=== PATIENT | male | born 1995 | race Caucasian/White ===

== ENCOUNTER 2018-09-20 11:43 | Emergency (ER) | payer OTHER | END 2018-09-20 12:08 | disposition left against medical advice (07) | LOC: UCEAST 11:43 | DX: S60.559A Superficial foreign body of unspecified hand, initial encounter (principal); X58.XXXA Exposure to other specified factors, initial encounter; Y92.9 Unspecified place or not applicable; Z53.21 Procedure and treatment not carried out due to patient leaving prior to being seen by health care provider ==

== ENCOUNTER 2019-07-03 07:07 | Emergency (ER) | payer OTHER ==
[2019-07-03 07:30] VITALS: BP 131/87
--- NOTE | 2019-07-03 07:48 | UC ---
Throat Pain/Nasal Refugio HPI - HPI Summary HPI Summary: 23-year-old male comes in with chief complaint of sore throat chills and swollen lymph nodes in his neck. Symptoms been going on for 4-5 days. Evening especially's been having chills and feeling overheated. No fevers measured. Does have pain when he swallows and his throat. He has green sputum. Denies any rhinorrhea or sinus pressure or ear pain. No complaint of any shortness of breath. - History of Current Complaint Chief Complaint: UCGeneralIllness Stated Complaint: SORE THROAT SWOLLEN GLAND Time Seen by Provider: 07/03/19 07:21 Pain Intensity: 6 - Allergies/Home Medications Allergies/Adverse Reactions: Allergies Allergy/AdvReac Type Severity Reaction Status Date / Time No Known Allergies Allergy Unverified 09/20/18 12:52 PMH/Surg Hx/FS Hx/Imm Hx Previously Healthy: Yes - Surgical History Surgical History: None - Family History Known Family History: Positive: Non-Contributory - Social History Alcohol Use: Weekly Substance Use Type: None Smoking Status (MU): Never Smoked Tobacco Review of Systems All Other Systems Reviewed And Are Negative: Yes Constitutional: Positive: Chills, Other - see hpi Skin: Positive: Negative Eyes: Positive: Negative ENT: Positive: Sore Throat, Other - see hpi Respiratory: Positive: Negative Cardiovascular: Positive: Negative Gastrointestinal: Positive: Negative Motor: Positive: Negative Neurovascular: Positive: Negative Musculoskeletal: Positive: Negative Neurological: Positive: Negative Psychological: Positive: Negative Is Patient Immunocompromised?: No Physical Exam Triage Information Reviewed: Yes Appearance: Well-Appearing, No Pain Distress, Well-Nourished Vital Signs: Initial Vital Signs Temp 98.9 F 07/03/19 07:20 Pulse 110 07/03/19 07:20 Resp 18 07/03/19 07:20 BP 131/87 07/03/19 07:20 Pulse Ox 98 07/03/19 07:20 Vital Signs Reviewed: Yes Eye Exam: Normal Eyes: Positive: Conjunctiva Clear ENT: Positive: Pharyngeal erythema, TMs normal Neck: Positive: Supple, Other: - Patient is anterior and posterior lymphadenopathy of the neck. Thyroid does not feel swollen. Respiratory: Positive: Lungs clear, Normal breath sounds, No respiratory distress Cardiovascular: Positive: RRR Musculoskeletal: Positive: Strength Intact, ROM Intact Neurological: Positive: Alert Psychological: Positive: Age Appropriate Behavior Skin Exam: Normal Throat Pain/Nasal Course/Dx - Course Course Of Treatment: DISCUSSED VIRAL VERSES BACTERIAL INFECTIONS AND THE ROLE OF ANTIBIOTICS. THE PATIENT PREFERS TO BE ON ANTIBIOTICS AT THIS TIME. Patient questioned whether or not he had thyroiditis. I let him know that with the green sputum and swollen lymph nodes most likely cause of the symptoms is an infection. I let him know after he clears the infection that if he has any further symptoms of feeling hot and cold that would be the time he had his thyroid checked by doing blood work. Also let him know that the lymph nodes should go back to normal after the infection is gone. Patient's to get reevaluated if not completely improved or worse. - Differential Dx/Diagnosis Provider Diagnosis: Pharyngitis, Lymphadenopathy of head and neck Discharge ED - Sign-Out/Discharge Documenting (check all that apply): Patient Departure All imaging exams completed and their final reports reviewed: No Studies - Discharge Plan Condition: Stable Disposition: HOME Prescriptions: Amoxicillin PO (*) [Amoxicillin 875 MG (*)] 875 mg PO BID #20 tab Patient Education Materials: Pharyngitis (ED), Lymphadenopathy (ED) Referrals: Phan Wood NP [Primary Care Provider] - Additional Instructions: FOLLOW UP WITH YOUR DOCTOR IF NOT COMPLETELY IMPROVED. GET REEVALUATED SOONER IF NOT IMPROVED OR WORSE OR ANY QUESTIONS OR CONCERNS. - Billing Disposition and Condition Condition: STABLE Disposition: Home
== END 2019-07-03 07:56 | disposition home or self-care (01) ==
LOC: UCEAST 07:07
DX: J02.9 Acute pharyngitis, unspecified (principal); R59.1 Generalized enlarged lymph nodes
CPT/HCPCS: 87651; 99202; G0463